=== PATIENT | female | born 1970 | race Caucasian/White ===

== ENCOUNTER 2019-10-12 20:08 | Emergency (ER) | payer SELFPAY ==
[2019-10-12 20:28] VITALS: BP 153/98; PULSE 84; O2SAT 98
[2019-10-12] MEDS ORDERED: TETRACAINE 0.5% STERI-UNIT SOL OP STA (20:36)
[2019-10-12] MEDS ORDERED: Fluor-I-Strip/Ful-Flo OP ONE (20:38)
[2019-10-12] MEDS ORDERED: TETRACAINE 0.5% STERI-UNIT SOL OP ONE (20:41)
--- NOTE | 2019-10-12 20:49 | ERPHSYRPT ---
- History of Present Illness Time Seen by Provider: 10/12/19 20:30 Source: patient Exam Limitations: no limitations Patient Subjective Stated Complaint: pt states, "I was up in the closet looking for my sons certificate. We have an old gun up there and I moved it to look. When I went to get down off the stool, I moved right into the barrel of the gun, hitting it on my eye". Triage Nursing Assessment: Pt unable to open rt eye, watering nonstop. Pt's left eye wants to close in defense of the right eye. Pt rates pain a 7. Physician History: patient is a 48-year-old female who was working in a closet turned it was hit in the right eye by the barrel of a rifle.. Location: right eye (right) Severity: severe Apparent Injury: yes Associated Symptoms: pain (hhe isaand and he is in), burning Chemical Exposure: No Trauma: Yes Allergies/Adverse Reactions: No Known Drug Allergies Allergy (Unverified 10/12/19 20:37) Hx Tetanus, Diphtheria Vaccination/Date Given: Yes Hx Influenza Vaccination/Date Given: Yes Hx Pneumococcal Vaccination/Date Given: No Immunizations Up to Date: Yes - Review of Systems Constitutional: No Fever, No Chills Eyes: Eye Pain, Eye Redness, Photophobia, Tearing, Foreign Body Sensation Ears, Nose, & Throat: No Symptoms Respiratory: No Cough, No Dyspnea Cardiac: No Chest Pain, No Edema, No Syncope Abdominal/Gastrointestinal: No Abdominal Pain, No Nausea, No Vomiting, No Diarrhea Genitourinary Symptoms: No Dysuria Musculoskeletal: No Back Pain, No Neck Pain Skin: No Rash Neurological: No Dizziness, No Focal Weakness, No Sensory Changes Psychological: No Symptoms Endocrine: No Symptoms All Other Systems: Reviewed and Negative - Past Medical History Pertinent Past Medical History: Yes Neurological History: No Pertinent History ENT History: No Pertinent History Cardiac History: No Pertinent History Respiratory History: No Pertinent History Endocrine Medical History: No Pertinent History Musculoskeletal History: Fractures GI Medical History: No Pertinent History History: No Pertinent History Psycho-Social History: Anxiety Female Reproductive Disorders: Other Other Medical History: IUD - Past Surgical History Past Surgical History: Yes Neuro Surgical History: No Pertinent History Cardiac: No Pertinent History Respiratory: No Pertinent History Gastrointestinal: Appendectomy Genitourinary: No Pertinent History Musculoskeletal: Other Female Surgical History: Section, Tubal Ligation Other Surgical History: carpal tunnel lt wrist, knee surgery rt - Social History Smoking Status: Current every day smoker How long have you smoked: 30 yrs Exposure to second hand smoke: No Drug Use: none Patient Lives Alone: No - Female History Hx Now: No - Nursing Vital Signs Nursing Vital Signs: Initial Vital Signs Temperature 98.0 F 10/12/19 20:27 Pulse Rate 84 10/12/19 20:27 Respiratory Rate 19 10/12/19 20:27 Blood Pressure 153/98 10/12/19 20:27 O2 Sat by Pulse Oximetry 98 10/12/19 20:27 Pain Scale Pain Intensity 7 - Physical Exam General Appearance: moderate distress Vision Acuity Left Eye: 20/20 Eye Exam: right eye: corneal abrasion (patient has a sizable corneal abrasion in the right upper lateral quadrant of the cornea) Ears, Nose, Throat Exam: normal ENT inspection Neck Exam: normal inspection Respiratory Exam: normal breath sounds Cardiovascular Exam: regular rate/rhythm Gastrointestinal Exam: soft Extremity Exam: normal inspection Neurologic: alert, oriented x 3 Skin Exam: normal color, warm, dry SpO2 Interpretation: normal SpO2: 98 O2 Delivery: Room Air - Course Nursing assessment & vital signs reviewed: Yes Ordered Tests: Medication Summary Discontinued Medications Generic Name Dose Route Start Last Admin Trade Name Joan PRN Reason Stop Dose Admin Hydrocodone Bitart/Acetaminophen 2 tab 10/12/19 21:05 10/12/19 21:16 [place] 5/325 Mg PO 10/12/19 21:06 2 tab SENT HOME W/ PATIENT ONE Administration Hydrocodone Bitart/Acetaminophen Confirm 10/12/19 21:15 [place] 5/325 Mg Administered 10/12/19 21:16 Dose 2 tab .ROUTE .STK-MED ONE Cyclopentolate HCl Confirm 10/12/19 21:05 Cyclogyl 1% Eye Drops Administered 10/12/19 21:06 Dose 2 ml OP .STK-MED ONE Cyclopentolate HCl 2 ml 10/12/19 21:10 10/12/19 21:13 Cyclogyl 1% Eye Drops OP 10/12/19 21:11 2 ml STAT ONE Administration Fluorescein Sodium 1 mg 10/12/19 20:38 10/12/19 20:45 Qdjci-M-Bmerv/Ful-Bob OP 10/12/19 20:39 1 mg STAT ONE Administration Tetracaine HCl 4 ml 10/12/19 20:36 10/12/19 20:42 Tetracaine 0.5% Steri-Unit Concepcion OP 10/12/19 20:37 4 ml STAT STA Administration Tetracaine HCl Confirm 10/12/19 20:41 Tetracaine 0.5% Steri-Unit Concepcion Administered 10/12/19 20:42 Dose 4 ml OP .STK-MED ONE Tobramycin Sulfate Confirm 10/12/19 21:03 Tobrex Eye Drops 5 Ml Administered 10/12/19 21:04 Dose 5 ml OP .STK-MED ONE Tobramycin Sulfate 5 ml 10/12/19 21:10 Tobrex Eye Drops 5 Ml OP 10/12/19 21:11 STAT ONE - Progress Progress: improved - Departure Departure Disposition: Home Clinical Impression: Corneal abrasion, right Condition: Fair Critical Care Time: No Referrals: LOURDES CASON [Primary Care Provider] - Instructions: Corneal Abrasion (DC) Prescriptions: Hydrocodone/APAP 5-325 Tab^^^ [[place] 5-325 Tablet^^^] 1 tab PO Q4HPRN PRN #10 tablet MDD 6 PRN Reason: Pain Cyclopentolate HCl [Cyclogyl 1% EYE DROPS] 2 drops OP Q12H #1 bottle Tobramycin 2 drops OP Q6H #5 ml
[2019-10-12] MEDS ORDERED: Tobrex EYE DROPS 5 ML OP ONE ×2 (21:03→21:10)
[2019-10-12] MEDS ORDERED: NORCO 5/325 MG PO ONE (21:05)
[2019-10-12] MEDS ORDERED: Cyclogyl 1% EYE DROPS OP ONE ×2 (21:05→21:10)
[2019-10-12] MEDS ORDERED: NORCO 5/325 MG ONE (21:15)
== END 2019-10-12 21:56 | disposition home or self-care (01) ==
LOC: ED 20:08
DX: S05.01XA Injury of conjunctiva and corneal abrasion without foreign body, right eye, initial encounter (principal)
CPT/HCPCS: 99283; A9270-GY